=== PATIENT | female | born 1995 | race Caucasian/White ===

== ENCOUNTER 2020-12-19 14:10 | Emergency (ER) | payer OTHER, SELFPAY ==
--- NOTE | ~2020-12-19 | US_ITS ---
EXAMINATION: US pelvic complete DATE: 12/19/2020 17:26 INDICATION: Heavy vaginal bleeding. TECHNIQUE: Multiple transabdominal sonographic images of the pelvis were obtained. COMPARISON: None. FINDINGS: The uterus measures 8.4 x 4.9 x 5.3 cm. The echogenic endometrial complex appears thickened to 3.5 c m at the fundus. The right ovary is not visualized. The left ovary measures 3.2 x 1.9 x 2.4 cm. Arter ial and venous waveforms are identified in the left ovary on color Doppler. There is no free fluid in the pelvis. IMPRESSION: 1. Thickened endometrial complex which measures up to 3.5 cm at the fundus. Differential would includ e clot within the endometrial canal, endometrial hyperplasia, endometrial polyp or endometrial carcin antoine. Consider gynecologic consultation for hysteroscopy for further evaluation. Reviewed, dictated and finalized at location [facility] [employer] IMPRESSION: 1. Thickened endometrial complex which measures up to 3.5 cm at the fundus. Dif ferential would include clot within the endometrial canal, endometrial hyperpla mandi, endometrial polyp or endometrial carcinoma. Consider gynecologic consultat ion for hysteroscopy for further evaluation.
[2020-12-19 14:13] VITALS: BP 120/75; PULSE 88; RESP 16; TEMP 36.1; O2SAT 99
--- NOTE | 2020-12-19 15:57 | ED.FEMALEGU ---
HPI - Female Genitourinary General Chief complaint: Vaginal Bleeding Stated complaint: vaginal bleeding Time Seen by Provider: 12/19/20 15:25 Source: patient Mode of arrival: ambulatory Limitations: no limitations History of Present Illness HPI Narrative: This patient is a 25 year old female who presents for an evaluation of abnormal vaginal bleeding. She states she has been having vaginal bleeding for 40 days. She was started on lamotrogine for anxiety and depression. She states her menstrual cycle was late 20 days after starting her medication. She reports once she started having her menstrual cycle, her bleeding has been heavy. She was started on Premarin 2 weeks ago but her vaginal bleeding has not improved. She states she uses 3 pads per day. She has intermittent lightheaded . She denies chest pain, shortness of breath. She thinks her bleeding has lessed today. She denies abdominal pain, nausea or vomiting. MD elicited complaint: vaginal bleeding Related Data Home Medications Medication Instructions Recorded Confirmed amitriptyline 50 mg PO HS 12/19/20 12/19/20 conjugated estrogens [Premarin] 2.5 mg PO DAILY 12/19/20 12/19/20 [id number]-gnlm [Emgality 120 mg SUBCUT ONCE 12/19/20 12/19/20 Syringe] lamotrigine 125 mg PO DAILY 12/19/20 12/19/20 venlafaxine [Effexor XR] mg PO 12/19/20 Allergies Allergy/AdvReac Type Severity Reaction Status Date / Time No Known Allergies Allergy Verified 12/19/20 14:17 Review of Systems Review of Systems: All systems reviewed & are unremarkable except as noted in HPI and below PMFSH Past Medical History Medical History (Updated 12/19/20 @ 18:59 by Nicole Chacon MD) Anxiety Depression Surgical History Surgical History (Updated 12/19/20 @ 17:39 by Nicole Chacon MD) Hx of tonsillectomy Family History Family History (Updated 06/17/12 @ 15:36 by DOCTOR UNKNOWN) Other Diabetes mellitus Social History Social History Smoking status: Never smoker Gender identity (if verbalized by the patient): Female Exam Const: General: no acute distress and alert Orientation/consciousness: patient oriented x3 Eyes: EOM: EOMs intact bilaterally Resp: Effort & Inspection: normal respiratory effort and no retractions Auscultation: clear to auscultation bilaterally Cardio: Rate: regular rate Rhythm: regular rhythm Heart sounds: no murmurs GI: GI Palp: Yes Soft to palpation, No Tenderness to palpation present (GI) and No Guarding due to palpation present (GI) Auscultation: normal bowel sounds : Speculum Exam - Cervix: Cervical os closed Other: minimal bleeding Neuro: General: patient oriented x3 and moves all extremities Extrem: General: normal to inspection Course Reevaluation(s) Reevaluation #1: Patient does no have any heavy bleeding at this time. I Discussed US and labs. She understands she will need to follow up with [facility] as outpatient. Date: 12/19/20 Time: 18:55 Consultations Consultation #1: I discussed case with Dr. Anguiano. I discussed Pelvic US findings. He would be happy to see patient within next week Date: 12/19/20 Time: 18:00 Vital Signs Vital signs: Vital Signs Temperature 97 F L 12/19/20 14:13 Pulse Rate 88 12/19/20 14:13 Respiratory Rate 16 12/19/20 14:13 Blood Pressure 120/75 12/19/20 14:13 Pulse Oximetry 99 12/19/20 14:13 Temperature 97 F L 12/19/20 14:13 Pulse Rate 84 12/19/20 18:00 Respiratory Rate 16 12/19/20 18:00 Blood Pressure 133/77 12/19/20 18:00 Pulse Oximetry 98 12/19/20 18:00 MDM - Female Genitourinary Lab Data Attestation: I reviewed the patient's lab results. Result diagrams: 12/19/20 17:06 12/19/20 17:06 Labs: Lab Results 12/19/20 12/19/20 Range/Units 17:06 17:06 WBC 13.7 H (4.5-10.0) K/mm3 RBC 4.35 (4.2-5.4) M/mm3 Hgb 13.5 (12.0-15.0) g/dL Hct 39.8 (37.0-47.0) % MCV 91.5 (80-100) fl M
[2020-12-19 16:25] VITALS: BP 109/75; PULSE 73
[2020-12-19 16:26] VITALS: BP 101/66; PULSE 87
[2020-12-19 16:27] VITALS: BP 103/63; PULSE 82
[2020-12-19 17:13] LABS: Basophils Absolute Auto 0.1 K/mm3 (0.0-0.1); Basophils Percent Auto 0.4 % (0.2-1.2); Eosinophils Absolute Auto 0.2 K/mm3 (0-0.3); Eosinophils Percent Auto 1.8 % (0-4.4); Hematocrit 39.8 % (37.0-47.0); Hemoglobin 13.5 g/dL (12.0-15.0); Immature Granulocyte Absolute 0.07 K/mm3 (0.00-0.031); Immature Granulocyte Percent A 0.5 % (0-0.5); Lymphocytes Absolute Auto 2.38 K/mm3 (0.9-3.2); Lymphocytes Percent Auto 17.4 % (18.3-44.2); Mean Corpuscular HGB Conc 33.9 g/dl (32-36); Mean Corpuscular Volume 91.5 fl (80-100); Mean Platelet Volume 9.3 fl (7.4-10.4); Monocytes Absolute Auto 0.9 K/mm3 (0.1-0.6); Monocytes Percent Auto 6.2 % (2.6-8.5); Neutrophils Absolute Auto 10.1 K/mm3 (1.3-6.7); Neutrophils Percent Auto 73.7 % (45.5-73.1); Platelet Count Result 383 k/mm3 (150-375); Red Blood Count 4.35 M/mm3 (4.2-5.4); Red Cell Distribution Width 13.6 % (11.5-14.5); White Blood Count 13.7 K/mm3 (4.5-10.0)
[2020-12-19 17:23] LABS: Anion Gap 8 mmol/L (8-16); Blood Urea Nitrogen 15 mg/dL (7-17); Calcium 9.3 mg/dL (8.4-10.2); Carbon Dioxide 24 mmol/L (22-30); Chloride 106 mmol/L (98-107); Estimated CRCL calculation 128 ml/min; Estimated Glomerular Filt Rate > 60; Glucose 116 mg/dL (65-105); Potassium 4.2 mmol/L (3.4-5.0); Sodium 138 mmol/L (137-145)
[2020-12-19 18:00] VITALS: BP 133/77; PULSE 84; RESP 16; O2SAT 98
== END 2020-12-19 19:20 | disposition home or self-care (01) ==
PROVIDERS: Emergency Provider General Practice
DX: N93.9 Abnormal uterine and vaginal bleeding, unspecified (principal); F41.9 Anxiety disorder, unspecified; F32.9 Major depressive disorder, single episode, unspecified
CPT/HCPCS: 36415; 76856; 80048; 81025; 85025; 99284